=== PATIENT | male | born 1935 | race Caucasian/White ===

== ENCOUNTER 2019-01-28 08:25 | Outpatient (CLI) | payer MEDICARE, BC, OTHER ==
--- NOTE | 2019-01-28 08:48 | RAD ---
EXAM: Two views chest PROVIDED CLINICAL HISTORY: Dyspnea COMPARISON: 11/11/2015 FINDINGS: Cardiac silhouette and pulmonary vasculature are within normal limits. There is mild linear scarring versus atelectasis in the lingula. The lungs are otherwise clear. Mild degenerative changes are seen in the spine. There is slight height loss of the T11 and T12 vertebral bodies, but this is a sta ble finding compared to the study in 2016. No other interval change. IMPRESSION: No acute cardiopulmonary process.
== END 2019-01-28 08:26 | disposition home or self-care (01) ==
LOC: RAD 08:25
PROVIDERS: ATTEND Internal Medicine Pulmonary Disease
DX: R06.00 Dyspnea, unspecified (principal)
CPT/HCPCS: 71046

== ENCOUNTER 2020-04-21 11:06 | Outpatient (CLI) | payer MEDICARE, BC, OTHER | END 2020-04-21 11:07 | disposition home or self-care (01) | LOC: CTENTCT 11:06 | PROVIDERS: ATTEND Otolaryngology Plastic Surgery within the Head & Neck | DX: J34.2 Deviated nasal septum (principal); J30.9 Allergic rhinitis, unspecified | CPT/HCPCS: 36415; 70486 ==